=== PATIENT | female | born 1985 | race Caucasian/White ===

== ENCOUNTER 2017-01-02 09:20 | Outpatient (CLI) | payer BC, OTHER | END 2017-01-02 09:21 | disposition home or self-care (01) | LOC: LAB.WCP 09:20 | PROVIDERS: ATTEND Physician Assistant Medical | DX: J03.90 Acute tonsillitis, unspecified (principal) | CPT/HCPCS: 87070 ==

== ENCOUNTER 2017-04-03 15:21 | Outpatient (CLI) | payer BC, OTHER ==
[2017-04-03 15:51] LABS: BASOPHILS # (AUTO) 0.1 10^3/uL (0.0-0.1); BASOPHILS % (AUTO) 0.5 %; EOSINOPHILS % (AUTO) 0.3 %; HCT - HEMATOCRIT 39.6 % (37.0-47.0); HGB - HEMOGLOBIN 13.6 g/dL (12.0-16.0); LYMPHOCYTES # (AUTO) 1.9 10^3/uL (1.5-3.5); LYMPHOCYTES % (AUTO) 18.9 %; MEAN CORPUSCULAR HEMOGLOBIN 28.9 pg (27.0-31.0); MEAN CORPUSCULAR HGB CONC 34.3 g/dL (32.0-36.0); MEAN CORPUSCULAR VOLUME 84.3 fL (81.0-99.0); MONOCYTES # (AUTO) 0.6 10^3/uL (0.0-1.0); MONOCYTES % (AUTO) 6.2 %; NEUTROPHILS # (AUTO) 7.5 10^3/uL (1.5-6.6); NEUTROPHILS % (AUTO) 74.1 %; RED CELL DISTRIBUTION WIDTH 13.5 % (12.0-15.0); UNCORRECTED WHITE BLOOD COUNT 10.1 x10^3/uL; WHITE BLOOD COUNT 10.1 x10^3/uL (4.8-10.8)
[2017-04-03 15:58] LABS: BILIRUBIN,URINE NEGATIVE (NEGATIVE); PH,URINE 6.5 PH (5.0-7.5)
[2017-04-03 16:06] LABS: WBC,URINE 0-3 /HPF (0-5)
[2017-04-05 18:31] LABS: TEST RESULT REPORT
== END 2017-04-03 15:22 | disposition home or self-care (01) ==
LOC: LAB 15:21
PROVIDERS: ATTEND Registered Nurse
DX: Z36.9 Encounter for antenatal screening, unspecified (principal)
CPT/HCPCS: 36415; 81001; 81599; 85025; 86762; 86850; 86900; 86901; 87340; 87389

== ENCOUNTER 2017-06-04 12:29 | Outpatient (CLI) | payer BC, OTHER ==
--- NOTE | 2017-06-06 10:41 | Ultrasound Report ---
DATE OF SERVICE: 06/04/2017 ANATOMIC SCREEN: 06/04/2017 COMPARISON: No comparisons. INDICATION: Anatomic screen. TECHNIQUE: Sonographic evaluation of single intrauterine . FINDINGS: Single intrauterine . heart rate 146 beats per minute. Presentation: Vertex. Placental position: Posterior fundal. No evidence of placenta previa. Three-vessel umbilical cord noted. Amniotic fluid subjectively normal, MVP 6.3 cm. BIOMETRY: BPD 5.3 cm corresponds to 22 weeks 2 days. Head circumference 19.7 cm corresponds to 21 weeks 6 days. Abdominal circumference 16.9 cm corresponds to 21 weeks 6 days. Femur length 3.5 cm corresponds to 21 weeks 1 day. Estimated weight 437 grams. Previously established EGA 21 weeks 3 days with MONICA 10/12/2017. EGA of the current ultrasound 21 weeks 6 days with MONICA 10/09/2017. The following structures were visualized: Choroid plexus, lateral ventricles, midline falx cerebri, cavum septum pellucidum, cisterna magna, cerebellum, nuchal fold, facial profile - nasal bone, nose, lips, hands and feet, cardiac situs, 4 chamber heart, left and right ventricular outflow tracts, stomach and situs, diaphragm, transverse kidneys, bladder, cord insertion, transverse and sagittal spine, upper and lower extremities. Cervix long and closed and measures 3.2 cm. Maternal adnexa grossly unremarkable. No free fluid. IMPRESSION: Single intrauterine . Appropriate-appearing growth. Estimated gestational age via current ultrasound 21 weeks 6 days with MONICA 2017. No evidence of anomalies on this examination. TD: 06/04/2017 22:34 [facility]
== END 2017-06-04 12:30 | disposition home or self-care (01) ==
LOC: DI 12:29
PROVIDERS: ATTEND Registered Nurse
DX: Z34.82 Encounter for supervision of other normal pregnancy, second trimester (principal)
CPT/HCPCS: 76811

== ENCOUNTER 2017-07-19 10:45 | Outpatient (CLI) | payer BC, OTHER ==
[2017-07-19 11:59] LABS: HGB - HEMOGLOBIN 12.8 g/dL (12.0-16.0); MEAN CORPUSCULAR HEMOGLOBIN 29.4 pg (27.0-31.0); MEAN CORPUSCULAR HGB CONC 34.2 g/dL (32.0-36.0); MEAN CORPUSCULAR VOLUME 86.1 fL (81.0-99.0); MEAN PLATELET VOLUME 9.5 fL (7.9-10.8); RED BLOOD COUNT 4.36 10^6/uL (4.20-5.40); RED CELL DISTRIBUTION WIDTH 13.2 % (12.0-15.0); WHITE BLOOD COUNT 10.9 x10^3/uL (4.8-10.8)
== END 2017-07-19 10:46 | disposition home or self-care (01) ==
LOC: LAB 10:45
PROVIDERS: ATTEND Registered Nurse
DX: Z34.83 Encounter for supervision of other normal pregnancy, third trimester (principal)
CPT/HCPCS: 36415; 82950; 86850

== ENCOUNTER 2017-09-16 08:00 | Outpatient (CLI) | payer BC | END 2017-09-16 23:59 | LOC: LAB.R 08:00 | PROVIDERS: ATTEND Registered Nurse | DX: Z34.83 Encounter for supervision of other normal pregnancy, third trimester (principal) | CPT/HCPCS: 87081 ==

== ENCOUNTER 2017-10-04 12:07 | Inpatient (IN) | payer BC ==
[2017-10-04 12:48] LABS: RUPTURE OF MEMBRANES PLUS POSITIVE (NEGATIVE)
[2017-10-04] MEDS ORDERED: PENICILLIN G POTASSIUM 5,000,000 UNIT in SODIUM CHLORIDE 0.9% MINIBAG 100 ML IV ONE (13:30)
[2017-10-04] MEDS: LACTATED RINGERS 1,000 ML IV SCH (13:35)
[2017-10-04] MEDS ORDERED: LIDOCAINE 1% 50 ML MDV ONE (13:36)
[2017-10-04] MEDS ORDERED: miSOPROStol 200 MCG TABLET ONE (13:36)
[2017-10-04] MEDS ORDERED: TERBUTALINE 1 MG/ML VIAL SUBQ ONE (13:37)
[2017-10-04] MEDS ORDERED: OXYTOCIN 10 UNIT/ML VIAL ONE (13:37)
[2017-10-04] MEDS ORDERED: OXYTOCIN/SODIUM CHLORIDE 500 ML IV ONE (13:37)
[2017-10-04] MEDS ORDERED: MINERAL OIL LIGHT 10 ML MC ONE (13:37)
[2017-10-04 13:38] LABS: BASOPHILS % (AUTO) 0.2 %; EOSINOPHILS % (AUTO) 0.2 %; HGB - HEMOGLOBIN 13.4 g/dL (12.0-16.0); LYMPHOCYTES # (AUTO) 1.4 10^3/uL (1.5-3.5); LYMPHOCYTES % (AUTO) 17.3 %; MEAN CORPUSCULAR HEMOGLOBIN 29.4 pg (27.0-31.0); MEAN CORPUSCULAR HGB CONC 34.5 g/dL (32.0-36.0); MEAN CORPUSCULAR VOLUME 85.2 fL (81.0-99.0); MEAN PLATELET VOLUME 10.4 fL (7.9-10.8); MONOCYTES # (AUTO) 0.5 10^3/uL (0.0-1.0); MONOCYTES % (AUTO) 5.7 %; NEUTROPHILS # (AUTO) 6.4 10^3/uL (1.5-6.6); NEUTROPHILS % (AUTO) 76.6 %; PLT - PLATELET COUNT 151 10^3/uL (130-450); RED BLOOD COUNT 4.55 10^6/uL (4.20-5.40); WHITE BLOOD COUNT 8.3 x10^3/uL (4.8-10.8)
[2017-10-04] MEDS: SODIUM CHLORIDE FLUSH 0.9% 10 ML SYRINGE IVP PRN (14:55)
[2017-10-04 15:03] LABS: PLATELET ESTIMATE, MANUAL NORMAL (130-450,000) (NORMAL); PLATELET MORPHOLOGY NORMAL APPEARANCE (NORMAL); RBC MORPHOLOGY (MULTIPLE) NORMAL APPEARANCE (NORMAL)
[2017-10-04] MEDS: PENICILLIN G POTASSIUM 2,500,000 UNIT in SODIUM CHLORIDE 0.9% 100ML 100 ML IV SCH ×2 (17:11→21:16)
[2017-10-04] MEDS: SODIUM CHLORIDE FLUSH 0.9% 10 ML SYRINGE IVP SCH ×3 (17:12→21:52)
--- NOTE | 2017-10-04 18:40 | HISTORY & PHYSICAL EXAMINATION ---
Admit History - Instructions [place]/Slash: -Left hand click circles element as positive or present. -Right hand click slashes element as negative or not present. - Visit Reason Visit Reason: Membranes rupture (leakage of fluid beginning @ 05) - : 2 Parity: 1 Premature: 0 Ectopic: 0 : 0 Care: positive: [facility] (beginning @ 12 weeks' gestation; 10 total visits) Risk/History: positive: Other (hx VAVAD 2004) Complications This : positive: Other (GBS pos) Smoking Status: Former smoker - Mother's Labs Mother's Blood Type: positive: O Mother's RH: positive: Negative (rhogam given 08/05/2017; no vaginal bleeding) GBS: positive: Group B Strep Positive Rubella Status: positive: Immune (No significant medical history No surgical history [employer] Hx includes LEEP for NIALL II, pt cannot recall when & cannot recall exact procedure, but she reports that she had something dramatic done to her cervix s/p her delivery in 2004 & did not need additional intervention afterward. Pap 2017 WNL, HRHPV negative OB hx 2005 VAVD 7# male, Scooby Social hx: to [place], no DV, works f/t as a brie @ [employer], no tobacco/etoh/ drugs) Meds/Allgy - Allergies Allergies/Adverse Reactions: Allergies Allergy/AdvReac Type Severity Reaction Status Date / Time No Known Drug Allergies Allergy Verified 10/04/17 18:09 Review of Systems - Constitutional Constitutional: reports: Fatigue. denies: Fever, Chills, Weakness - Eyes Eyes: denies: Blurred vision, Spots in vision - Cardiovascular Cariovascular: denies: Irregular heart rate, Palpitations, Chest pain, Edema, Lightheadedness - Respiratory Respiratory: denies: Cough, Wheezing, SOB at rest, SOB with exertion - Gastrointestinal Gastrointestinal: reports: Abdominal pain (with contractions). denies: Constipation, Diarrhea, Change in bowel habits, Nausea, Vomiting - Genitourinary Genitourinary: reports: Frequency, Urgency. denies: Dysuria, Flank pain - Musculoskeletal Musculoskeletal: reports: Back pain (slight, with contractions). denies: Muscle pain - Integumentary Integumentary: denies: Rash, Pruritis, Lesions - Neurological Neurological: denies: General weakness, Focal weakness, Headache - Psychiatric Psychiatric: denies: Depression, Anxiety - All Other Systems All Other Systems: reports: Other (leakage of amniotic fluid since 529; occ uterine contractions, minimally uncomfortable; no vaginal bleeding, +FM) Physical - Abdominal Exam Vital Signs: Temp Pulse Resp BP Pulse Ox 36.9 C 75 16 122/74 99 10/04/17 14:00 10/04/17 14:00 10/04/17 14:00 10/04/17 14:00 10/04/17 14:00 Contraction Frequency (min/apart): 3-4 Contraction Intensity: positive: Mild to moderate Uterine Resting Tone: positive: Soft - Monitoring Heart Rate Baseline: 130 Strip Review: positive: Category I - Presentation Presentation: positive: Vertex - Vaginal Exam Membranes: positive: Membranes ruptured Dilation (in cm): 2 Effacement (%): 80 Station: positive: -1 Cervical Position: positive: Midposition - Speculum Exam Speculum Exam Performed: positive: No Findings: positive: Other (ROM +) - Other Notes Labor Progress Note/Additional Text: S: Lulu complains of cramping discomfort & more intense discomfort w/ contraction activity. Ongoing leakage of amniotic fluid. Does not desire analgesia/anesthesia @ this time. O: AAOx3, NAD [place] female; VSS HEENT grossly normocephalic, atraumatic Lungs b/l CTA t/o Heart RRR nl s1s2, no murmur Abd gravid, NT, lie longitudinal, presentation cephalic, palpable movement , EFW 7-7.5# : no lesion, gross leakage of CAF MS: FROM, no edema, no erythema, no deformity Skin: c/d/i, warm, well-perfused, no lesions Neuro: no focal deficit Psych: pleasantly conversant w/ normal mood & affect EFM: BL 130bpm, +accels, no decels, mod variabiity TOCO: UCs q2-3 min x60-80 seconds, palpably moderate SVE: initially closed & stenotic, w/ manipulation, dilated to 2cm/80/-2, ongoing leakage of CAF A: 32y/o @ 39 weeks by LMP consistent w/ 1st trimester US GBS positive s/p 2 doses PCN for IPAP FHTs cat I Stenotic cervical os SROM 13.5 hours, CAF, afebrile Adequate pain control w/o analgesia/anesthesia Hx operative vaginal delivery P: 1. Reviewed options for management of PROM, pt feels her contraction intensity has increased dramatically, UCs consistently occurring now q2-3 minutes, pt desires expectant management for now to see if she experiences further cervical change now that she is 2cm, aware of risks of expectant management vs. augmentation 2. Reviewed labor physiology & anticipatory guidance 3. Continue PCN per protocol for GBS prophylaxis 4. Reassess cervical status x4 hours, earlier PRN; if no change x4 hours, begin Pitocin infusion & titrate per protocol to adequate labor pattern by tocometry 5. Analgesia/anesthesia PRN per pt request 6. Reviewed plan of care w/ pt, partner & RN @ bedside; all in agreement, without concerns. Plan for Labor - Plan For Labor I expect patient to be DC'd or transferred within 96 hours.: Yes Plan for Labor: 1. Reviewed options for management of PROM, pt feels her contraction intensity has increased dramatically, UCs consistently occurring now q2-3 minutes, pt desires expectant management for now to see if she experiences further cervical change now that she is 2cm, aware of risks of expectant management vs. augmentation 2. Reviewed labor physiology & anticipatory guidance 3. Continue PCN per protocol for GBS prophylaxis 4. Reassess cervical status x4 hours, earlier PRN; if no change x4 hours, begin Pitocin infusion & titrate per protocol to adequate labor pattern by tocometry 5. Analgesia/anesthesia PRN per pt request 6. Reviewed plan of care w/ pt, partner & RN @ bedside; all in agreement, without concerns.
[2017-10-05] MEDS ORDERED: OXYTOCIN/SODIUM CHLORIDE 500 ML IV SCH
[2017-10-05] MEDS: SODIUM CHLORIDE FLUSH 0.9% 10 ML SYRINGE IVP PRN (00:15)
[2017-10-05] MEDS: SODIUM CHLORIDE FLUSH 0.9% 10 ML SYRINGE IVP SCH (00:15)
[2017-10-05] MEDS: PENICILLIN G POTASSIUM 2,500,000 UNIT in SODIUM CHLORIDE 0.9% 100ML 100 ML IV SCH ×4 (01:59→13:25)
[2017-10-05] MEDS: LACTATED RINGERS 1,000 ML IV SCH ×3 (07:19→12:28)
[2017-10-05] MEDS: fentaNYL 100 MCG/2 ML VIAL IVP PRN ×3 (08:25→12:21)
[2017-10-05] MEDS ORDERED: PROMETHAZINE INJ 25 MG in SODIUM CHLORIDE 0.9% 50 ML IV PRN (11:36)
--- NOTE | 2017-10-05 11:46 | PROVIDER PROGRESS NOTE ---
Labor Progress Note - Uterine Monitoring Uterine Monitoring Mode: positive: External toco Contraction Frequency (min/apart): 2-3 Contraction Intensity: positive: Moderate to strong Uterine Resting Tone: positive: Soft - Monitoring Monitor Mode: positive: External ultrasound Heart Rate Baseline: 135 Heart Rate Variability: positive: Moderate (6-25 bmp) Accelerations: positive: Present, 15x15 Decelerations: positive: None Strip Review: positive: Category I - Vaginal Exam Dilation (in cm): 4 Effacement (%): 100 Station: -1 Cervical Position: Midposition - Labor Progress Note Labor Progress Note/Additional Text: S: Lulu is getting increasingly uncomfortable w/ her uterine contractions and is having to focus intently during her contractions to cope. She was able to get some relief w/ hydrotherapy & feels IV fentanyl helps take the edge off some. She is exhausted, having slept only ~2 hours overnight. Her & mother are @ the bedside & are supportive. She has not had any further leakage of fluid since yesterday evening. She reports some moderate bloody show when she has used the restroom. She declines epidural anesthesia @ this point. The fentanyl is causing her some mild nausea & she has had emesis x2. O: AAOx3, NAD [place] female T 36.7, HR 56bpm, RR 16, BP 119/72 EFM: BL 135bpm, +accels, no decels, mod kadeem TOCO: UCs q2-3 min [id number], palpably strong w/ 9mU/min Pitocin infusing SVE: initially 2cm w/ stenotic band of tissue around os, scar tissue manually disrupted & pt shortly thereafter 4cm/100%/-1, AROM forebag for moderate CAF, position FLAVIA, vertex well-applied to cervix, ongoing leakage of CAF A: 32 y/o @ 39w1d by LMP dating consistent w/ first trimester US, Pitocin IOL for PROM SROM for CAF 10/04/2017 @ 0530, for a total ruptured duration of 30.5 hours, afebrile GBS positive s/p 8 doses PCN for IPAP FHTs cat I Slow cervical progress from closed to 4cm, cervical stenosis Adequate contraction pattern by tocometry w/ Pitocin infusion slowly titrated per protocol to maximum infusion rate of 9mU/min Adequate pain control w/ IV analgesia/hydrotherapy w/o desire for anesthesia @ this time P: 1. Reviewed labor physiology & dysfunction of dilation secondary to cervical stenosis 2. Continue Pitocin infusion, titrate per protocol to maintain adequate labor pattern by tocometry 3. Continue GBS prophylaxis w/ IV PCN per protocol 4. Promethazine 25mg IVP q 6 hrs PRN nausea/vomiting 5. Analgesia/anesthesia PRN per pt request 6. Reassess cervical status x2-4 hours, earlier PRN; if no cervical change, will insert IUPC & titrate Pitocin to adequacy per MVU 7. Reviewed optimal maternal positioning to facilitate descent 8. Reviewed plan of care w/ pt, partner, pt's mother & RN @ bedside; Dr. Troy, , updated as to pt clinical status.
[2017-10-05] MEDS ORDERED: fentaNYL 100 MCG/2 ML VIAL ONE (12:29)
[2017-10-05] MEDS ORDERED: BUPIVACAINE 0.25% PF 30 ML VIAL SUBQ ONE (13:00)
[2017-10-05] MEDS ORDERED: BUPIVACAINE 0.75% MPF 30 ML VIAL ONE (13:06)
[2017-10-05] MEDS ORDERED: fentaNYL 250 MCG/5 ML VIAL ONE (13:07)
[2017-10-05] MEDS ORDERED: ONDANSETRON 4 MG/2 ML VIAL IVP PRN (13:13)
[2017-10-05] MEDS ORDERED: NALOXONE 0.4 MG/ML VIAL IVP PRN (13:13)
[2017-10-05] MEDS ORDERED: LACTATED RINGERS 500 ML IV ONE (13:13)
[2017-10-05] MEDS ORDERED: ePHEDrine 50 MG/ML VIAL IVP PRN (13:13)
[2017-10-05] MEDS ORDERED: fent/BUPIV 2 MCG/0.125% 250 ML EP PRN (13:13)
[2017-10-05] MEDS ORDERED: NALBUPHINE 20 MG/ML AMP IVP PRN (13:13)
--- NOTE | 2017-10-05 13:16 | PROVIDER PROGRESS NOTE ---
Labor Progress Note - Uterine Monitoring Uterine Monitoring Mode: positive: External toco Contraction Frequency (min/apart): 2-3 min x70-90 seconds Contraction Intensity: positive: Moderate to strong Uterine Resting Tone: positive: Soft - Monitoring Monitor Mode: positive: External ultrasound Heart Rate Baseline: 125 Heart Rate Variability: positive: Moderate (6-25 bmp) Accelerations: positive: Present, 15x15 Decelerations: positive: None Strip Review: positive: Category I - Vaginal Exam Dilation (in cm): 5 Effacement (%): 100 Station: 0 Cervical Position: Anterior - Labor Progress Note Labor Progress Note/Additional Text: S: Lulu is comfortable w/ her epidural in place. She is hoping she will be able to nap. Her mother & her are present @ the bedside & are involved & supportive. O: AAOx3, NAD [place] female VS: T: 36.7, HR 72 RR 18 BP 103/59 EFM: BL 125bpm, + accels, no decels, mod kadeem TOCO: UCs q2-3 min x 70-90 seconds, palpably moderate to strong SVE per RN: 5/100/0, ongoing leakage of CAF A: 32 y/o @ 39w1d by LMP consistent w/ 1st trimester US, Pitocin induction of labor for PROM SROM 10/04/2017 @ 0530, for a total ruptured duration of ~32 hours, afebrile GBS positive s/p 8 doses IV PCN for IPAP FHTs cat I Slow cervical change w/ cervical stenosis, now in active labor w/ adequate contraction pattern per tocometry Adequate pain control w/ epidural anesthesia P: 1. Continue to titrate Pitocin infusion per protocol to maintain adequate contraction pattern by tocometry 2. Continue IV PCN per protocol for GBS prophylaxis 3. Reassess cervical status x4 hours, earlier PRN 4. Encouraged maternal rest 5. Zepeda catheter placement--maintain until 2nd stage 6. Reviewed plan of care w/ pt, partner, pt's mother & RN @ bedside; all in agreement, without concerns
--- NOTE | 2017-10-05 14:32 | DELIVERY NOTE ---
Delivery Note - Labor Labor: positive: Induced by oxytocin - Infant Delivery Method Delivery Method: positive: Spontaneous vaginal delivery - Presentation Presentation: positive: Vertex, Compound (left hand), BILL - left occiput anterior - Nuchal Cord Nuchal Cord: positive: None - Anesthetic Anesthetic Type: - Amniotic Fluid Description Amniotic Fluid Description: positive: Clear - Episiotomy Type Episiotomy Type: positive: None - Laceration Laceration: positive: None - Delivery Outcome Delivery Outcome: positive: Livebirth - [place]: positive: Placed in direct skin contact with mother, Stimulated, Warmed , [place] used, Warmer used sex: positive: Male - Cord Cord: positive: 3 vessels - Placenta Placenta: positive: Intact, Spontaneous - Estimated Blood Loss Estimated Blood Loss (in cc): 350 - Post Delivery Events Post Delivery Events: positive: No post delivery events - Delivery Comments (Free Text/Narrative) Delivery Comments (Free Text/Narrative): Lulu Chaudhary is a 32 y/o [id number] who presented w/ SROM for CAF 10/04/2017; SROM @ 0530, presented for care @ 1230. ROM + positive w/o gross leak @ that point. Lulu was sagar spontaneously & requested to delay Pitocin infusion to await spontaneous onset of labor. She was hoping for a minimally interventive delivery & understood risks/benefits. She was GBS positive & began immediately upon identification of ROM status to receive IV PCN per protocol for prophylaxis. She received a total of 8 doses of IV PCN for IPAP. She did not progress & her cervical stenosis from a prior excisional procedure made her cervical dilation challenging. Scar tissue was manually disrupted & she progressed to 2cm. She did not make further cervical change & Pitocin induction of labor was initiated @ 18 hours post-ROM. She received Pitocin infusion to a maximum infusion rate of 9mU/min & did not make further cervical change until she underwent further manual disruption of cervical scar tissue & AROM of a forebag for CAF. She was 4cm dilated 10/05/2017 @ 1130 & entered active labor @ 1230. She requested & received 3 doses of IV fentanyl 100mcg for discomfort, the last 10/05/2017 @ 1222. She requested & received epidural anesthesia for uncontrolled discomfort, with placement & bolus complete @ 1256. FHTs were monitored electronically t/o & were consistently category I. She was found to be complete w/ a spontaneous urge to push @ 1343, for a total first stage duration of 2 hours, 13 minutes. She began pushing w/ spontaneous urge @1354 &delivered a viable male vaginally in BILL position w/ a compound L hand over an intact perineum @ 1404, for a total 2nd stage duration of 21 minutes w/ active pushing x10 minutes. initially stunned w/o respiratory infant, placed to maternal abdomen for drying/stim w/ minimal response to stimulation, poor tone & no respiratory effort. Cord therefore clamped x2 & cute, to warmer for resuscitative efforts/CPAP. Apgars 4/6/ 9; improved w/ CPAP and stimulation only. Total ruptured duration 32.5 hours, afebrile t/o. Active management of the third stage w/ Pitocin in IV fluids immediately following delivery of shoulders; placenta delivered spontaneously, [place], @ 1406 with a large amount of posterior adherent clot, for a total 3rd stage duration of 2 minutes. FF @ U. Vagina & perineum inspected & found to be intact. EBL 350mL. Mother & infant stable w/ VS stable, spontaneous respiratory effort & infant actively nursing by 20 minutes s/p delivery. Mother initially desired tubal sterilization, has changed her mind. Plans to breastfeed baby Murtaza, whose weight is pending.
[2017-10-05] MEDS ORDERED: WITCH HAZEL/GLYCERIN 1 EACH MED..PAD TOP PRN (14:43)
[2017-10-05] MEDS ORDERED: HYDROCORTISONE 1% CREAM 28 GM TUBE PR PRN (14:43)
[2017-10-05] MEDS ORDERED: OXYTOCIN/SODIUM CHLORIDE 250 ML IV ONE (14:43)
[2017-10-05] MEDS ORDERED: HYDROCORTISONE/PRAMOXINE 10 GM PR PRN (14:43)
[2017-10-05] MEDS ORDERED: MAGNESIUM HYDROXIDE 2,400 MG/30 ML UDC PO PRN (14:43)
[2017-10-05] MEDS ORDERED: RHO(D) IMMUNE GLOBULIN 300 MCG SYRINGE IM ONE (14:43)
[2017-10-05] MEDS: ACETAMINOPHEN 500 MG TABLET PO SCH (16:55)
[2017-10-05] MEDS: DOCUSATE SODIUM 100 MG CAPSULE PO SCH (20:48)
[2017-10-05] MEDS: CELECOXIB 100 MG CAPSULE PO SCH (20:48)
[2017-10-06] MEDS: ACETAMINOPHEN 500 MG TABLET PO SCH ×3 (01:49→16:56)
[2017-10-06] MEDS: CELECOXIB 100 MG CAPSULE PO SCH ×2 (08:23→20:10)
[2017-10-06] MEDS: DOCUSATE SODIUM 100 MG CAPSULE PO SCH ×2 (08:23→20:10)
--- NOTE | 2017-10-06 15:39 | PROVIDER PROGRESS NOTE ---
Subjective - Prog Note Date Prog Note Date: 10/06/17 Prog Note Time: 15:30 - Subjective Pt reports feeling: Improved Subjective: Onel is doing well. She is ambulating & voiding w/o difficulty. She is passing flatus & tolerating a regular diet. She has minimal discomfort & is not requiring analgesia/anesthesia. She reports minimal lochia rubra. She is attempting to breastfeed but her baby has not sustained a successful latch; she has been ensuring that she pumps regularly & is expressing 4-5mL of colostrum at each pumping episode; she is syringe-feeding the @ the breast. Objective - Vital Signs/Intake & Output Reviewed Vital Signs: Yes Vital Signs: Vital Signs x48h Temp Pulse Resp BP Pulse Ox 10/06/17 10:30 66 18 112/59 L 100 10/06/17 08:30 37.0 C 58 L 16 125/73 100 Intake & Output: Intake & Output 10/03/17 10/04/17 10/05/17 10/06/17 23:59 23:59 23:59 23:59 Intake Total 837.5 1212.625 Output Total 555 Balance 837.5 657.625 - Objective General Appearance: positive: No acute distress, Alert Eyes Bilateral: positive: Normal inspection Respiratory: positive: Chest non-tender, No respiratory distress, Breath sounds nml Cardiovascular: positive: Regular rate & rhythm, No murmur, No gallop Abdomen: positive: Non-tender, No distention, Other (FF U-1) Back: positive: Nml inspection Skin: positive: Color nml, No rash, Warm, Dry Extremities: positive: Non-tender, Full ROM, Nml appearance, No pedal edema. negative: Calf tenderness Neurologic/Psychiatric: positive: Oriented x3, CN's nml (2-12), Motor nml, Sensation nml, Mood/affect nml Comments/Other: Nipples b/l intact & everted; colostrum readily expressible; needs larger flange 27mm instead of 24mm for pumping, reviewed; attempted assistance w/ latch , infant unwilling to latch @ this time, intermittent sucking efforts, observed direct, sustained sucking on pacifier, reviewed. Perineum intact w/ minimal lochia rubra, no erythema/edema/ecchymosis - Lab Results Fish Bones: 10/04/17 13:20 Other Labs: Lab Results x24hrs 10/05/17 Range/Units 19:30 Blood Type O NEGATIVE Weak D (Du) WEAK-D NEGATIVE Maternal Bleed NEGATIVE (NEGATIVE) ABX Reporting Has patient been on IV antibiotics over the past 48 hours?: Yes Assessment/Plan - Problem List (1) (normal spontaneous vaginal delivery) Impression: 32 y/o s/p w/o laceration 10/05/2017; PPD #1 Normal uterine involution Adequate pain control w/o analgesia Minimal lochia rubra PROM for >24 hours prior to delivery, s/p 8 doses IV PCN w/ challenges secondary to latch P: 1. Continue routine pp care 2. support provided & to continue in ongoing fashion 3. Use 27mm flange for pumping only; reviewed breast care, nipple care 4. Literature provided re: latch 5. Anticipate d/c home PPD#2
[2017-10-07] MEDS: ACETAMINOPHEN 500 MG TABLET PO SCH (02:09)
[2017-10-07] MEDS: CELECOXIB 100 MG CAPSULE PO SCH (08:11)
[2017-10-07] MEDS: DOCUSATE SODIUM 100 MG CAPSULE PO SCH (08:12)
--- NOTE | 2017-10-07 08:38 | Discharge Plan ---
Discharge Plan Disposition: 01 Home, Self Care Condition: Good Diet: Regular Activity Restrictions: No Restrictions Shower Restrictions: No Driving Restrictions: No Weight Bearing: Full Weight No Smoking: If you smoke, Please STOP! Call for help. Follow-up with: Gabi Weber CNM, ARNP [Provider Admit Priv/Credential] -
--- NOTE | 2017-10-07 08:43 | PROVIDER PROGRESS NOTE ---
Subjective - Subjective Subjective: PPD #2 S: Bonding well with baby. without difficulty. Baby latched at 1500 yesterday and has been doing well at the breast. Pain well controlled with ibuprofen. Bleeding decreased and is light. Mom supportive at the bedside. O: Heart RRR w/o M/G/R, lungs CTAB, abdomen soft and nontender with fundus firm at U-1. Bilateral LE's no edema. Perineum intact. Light lochia rubra. A: 32yo -->P2 PPD#2 s/p TSVD of viable male P: Discharge home today on PPD #2. self care and warning signs reviewed. Plans to take ibuprofen 600mg q 6 hrs PRN at home. She plans to follow up with myself at [facility] in 1 week for support, 3 weeks for visit, and 8 weeks for annual well woman exam. She desires Mirena IUD for contraception. She verbalized understanding and agrees to above plan. She denies further questions or concerns today. Objective - Vital Signs/Intake & Output Vital Signs: Vital Signs x48h Temp Pulse Resp BP Pulse Ox 10/07/17 04:18 37.0 C 62 16 138/62 H 99 Intake & Output: Intake & Output 10/04/17 10/05/17 10/06/17 10/07/17 23:59 23:59 23:59 23:59 Intake Total 837.5 1212.625 Output Total 555 Balance 837.5 657.625 - Lab Results Fish Bones: 10/04/17 13:20
[2017-10-07 10:48] VITALS: BP 124/69
--- NOTE | 2017-10-07 11:47 | Labor Flowsheet ---
Labor Flowsheet Datetime Report Generated by CPN: 10/07/2017 11:47 Datetime: 10/07/2017 07:55 VITAL SIGNS NBP Sys/Michelle/Mean (mmHg): 124 : 69 : 82 Pulse: 57 LaborFlag: Labor Datetime: 10/06/2017 20:09 SpO2 (%): 100 Datetime: 10/05/2017 13:42 VAGINAL EXAM Dilatation (cm): 10.0 Effacement (%): 100 Station: 1 Exam by: T Bandar RNC Datetime: 10/05/2017 13:26 Antibiotics: Penicillin IV (Units) @ 2.5 million units Datetime: 10/05/2017 13:19 Vaginal Exam Comments: Zepeda placed I/O Interventions: Zepeda Cath Inserted COMMUNICATION Communication: RN at Bedside; Provider at Bedside Provider Notified (Name): Morghan Milagrosa Datetime: 10/05/2017 13:11 Epidural Procedure Other: Pump Started Datetime: 10/05/2017 12:55 Epidural Procedure: Loading Dose Datetime: 10/05/2017 12:51 PROCEDURE TIME OUT Procedure Verify: Correct Patient Identity; Accurate Procedure Consent Form; Agreement on Procedure to be Done; Correct Patient Position; Safety Precautions Based on Patient History or Medication Use ANESTHESIA Anesthesia Plans: Epidural Epidural Positioning: Sitting Datetime: 10/05/2017 12:38 Temperature (C): 36.5 Datetime: 10/05/2017 12:30 Stage of : Labor UTERINE ACTIVITY Monitor Mode: External Frequency (min): 2-3 Quality: Moderate Duration (sec): 30-50 Pattern: Normal: <= 5 Contractions in 10 Minutes Resting Tone (Palpate): Relaxed ASSESSMENT A Monitor Mode: External US FHR Baseline Rate : 130 FHR Baseline Changes: No Baseline Change Variability: Moderate 6-25 bpm Accelerations: 15X15 Decelerations: None Category: Category I Analgesics/Sedatives: Fentanyl (mcg) @ 100 Datetime: 10/05/2017 12:26 PATIENT CARE IV/Blood Work: IV Bolus Started Datetime: 10/05/2017 12:21 Communication Comments: morghan milagrosa cnm Datetime: 10/05/2017 12:01 Oxygen Method: Nasal Cannula Datetime: 10/05/2017 11:43 Resting Tone IUP (mmHg): soft Datetime: 10/05/2017 11:31 Comments: Variable decel during vaginal exam. Datetime: 10/05/2017 11:30 Patient Position/Activity: High Fowlers Hygiene: Underpad Changed; Peripad Changed Datetime: 10/05/2017 11:27 Respirations: 20 Datetime: 10/05/2017 11:21 Vaginal Bleeding: Normal Show Cervix, Consistency: Soft Cervix, Position: Midposition Datetime: 10/05/2017 11:00 MEDICATIONS Pitocin (milliunits): Increased to @ 9 Datetime: 10/05/2017 10:45 Patient Care Comments: 150 mls of urine Datetime: 10/05/2017 09:01 PAIN Pain Scale: 1 Pain Presence: Intermittent Pain Type: Cramping Pain Location: Abdomen Datetime: 10/05/2017 08:45 Contraction Comments: mod to palpation Datetime: 10/05/2017 08:30 Monitor Interventions for UA: [place] Adjusted Datetime: 10/05/2017 08:15 Membrane Status: Ruptured Datetime: 10/05/2017 08:01 Membranes Rupture Method: Spontaneous Amniotic Fluid Color: Clear Amniotic Fluid Amount: None Amniotic Fluid Odor: Normal Datetime: 10/05/2017 07:44 Monitor Interventions for FHR: Ultrasound Adjusted Pain Relief Measures: Comfort Measures Pain Coping: Talking Through Contractions Pain Assessment Comments: With some of her contractions. The jacuzzi helped a lot . MATERNAL ASSESSMENT Level of Consciousness: Fully Conscious DTR's/Clonus: DTRs 2+; No Clonus Headache: Denies Breath Sounds, Left: Clear and Equal Breath Sounds, Right: Clear and Equal Nausea/Vomiting: Denies RUQ Epigastric Pain: Denies Comfort Measures: Breathing/Relaxation; Hot Shower/Tub/Spa; Family Support Datetime: 10/05/2017 07:01 Pitocin Checklist: At Least 1 Acceleration of 15 bpm x 15 Seconds in 30 Minutes or Adequate Variabi lity; No More than 5 Uterine Contractions in 10 Minutes for any 20 Minute Interval; Uterus Palpates S oft between Contractions Datetime: 10/05/2017 02:15 Temperature Route: Oral Datetime: 10/05/2017 00:16 TEACHING Instructional Method: Verbal Plan of Care: Plan of Care Discussed; Labor Labor/Induction: Augmentation Medications: Pitocin Datetime: 10/04/2017 23:49 Notification Reason: Labor Status Datetime: 10/04/2017 21:34 Anesthesia Comments: Randall [employer] ACTOR here going over paperwork in case pt decides that she would like an epidural later on in her labor process Datetime: 10/04/2017 18:31 Strip Reviewed by: M Milagrosa Datetime: 10/04/2017 17:47 Medication Comments: PCN finished Datetime: 10/04/2017 14:39 Pain Goal: 5 Datetime: 10/04/2017 14:10 Membrane Comments: ROM Plus postive, no fluid noted since admit Datetime: 10/04/2017 14:07 Membranes Ruptured Date/Time: 10/04/2017 05:30 Datetime: 10/04/2017 13:20 ROM Test Kit: Positive
--- NOTE | 2017-10-08 19:04 | DISCHARGE SUMMARY ---
Physician: NOY Hector DATE OF ADMISSION: 10/04/2017 DATE OF DISCHARGE: 10/07/2017 DIAGNOSES ON ADMISSION 1. A 32-year-old G2, P1-0-0-1 at 39 weeks' gestation. 2. Premature rupture of membranes. 3. GBS positive. DIAGNOSES ON DISCHARGE 1. A 32-year-old G2, P2-0-0-2, status post spontaneous vaginal delivery on 10/2017. 2. Normal recovery. BRIEF HISTORY: She is a patient of [facility] who presented on 10/04/2017 with complaints of rupture of membranes. The patient was found to be 2 cm dilated, 80% effaced at a -1 station in a mid position. She was found to contract every 3-4 minutes. Penicillin was initiated per protocol for GBS prophylaxis. She was augmented with Pitocin and spontaneously delivered a viable male infant on 10/05/2017. Apgars were 4, 6, and 9 at one, five, and ten minutes respectively. EBL was 350 mL. The perineum, vagina, and cervix were inspected and found to be intact. She has been doing well in her course. She is ambulating and tolerating a regular diet. She is urinating without difficulty, and her lochia is normal. Her pain is well controlled with oral medications. She will be discharged home today on day #2. She intends to follow up with myself at [facility] in 1 week for routine visit and again in 3 weeks for routine visit. She has been given precautions to call if she has any worsening fevers, chills, abdominal pain, increased bleeding, or foul smelling vaginal lochia. TD: 10/08/2017 19:03 BILLY
== END 2017-10-07 10:40 | disposition home or self-care (01) | DRG 775 ==
LOC: WFO 12:07 → FBP 12:09 → WFO 12:51 → FBP 12:52
PROVIDERS: ADMIT Registered Nurse; ATTEND Nurse Practitioner Obstetrics & Gynecology
PROC: 10E0XZZ Delivery of Products of Conception, External Approach (ICD-10-PCS; principal; 2017-10-04)
PROC: 10907ZC Drainage of Amniotic Fluid, Therapeutic from Products of Conception, Via Natural or Artificial Opening (ICD-10-PCS; 2017-10-04)
DX: O99.824 Streptococcus B carrier state complicating childbirth (principal); O34.43 Maternal care for other abnormalities of cervix, third trimester; N88.2 Stricture and stenosis of cervix uteri; O42.02 Full-term premature rupture of membranes, onset of labor within 24 hours of rupture; O32.6XX0 Maternal care for compound presentation, not applicable or unspecified; O26.893 Other specified pregnancy related conditions, third trimester; Z3A.39 39 weeks gestation of pregnancy; Z37.0 Single live birth; Z67.91 Unspecified blood type, Rh negative; Z87.891 Personal history of nicotine dependence; Z87.410 Personal history of cervical dysplasia
CPT/HCPCS: 36415; 83033; 84112; 85025; 86900; 86901; 88307; 99213

== ENCOUNTER 2022-06-19 17:46 | Emergency (ER) | payer OTHER ==
--- NOTE | 2022-06-19 20:37 | ED Physician Documentation ---
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 She had sudden onset pain that improved but then recurred later in the day. Denies vision changes but does express pain as well as some tearing. No contact lens use at baseline. No other injury. Review of Systems Eyes: reports: Discharge, Irritation PD PAST MEDICAL HISTORY - Past Medical History Past Medical History: No Cardiovascular: None Respiratory: None Neuro: None Endocrine/Autoimmune: None GI: None SAFETY LEADER: None : None HEENT: None Psych: None Musculoskeletal: None Derm: None - Past Surgical History Past Surgical History: No - Present Medications Home Medications: Ambulatory Orders Medication Instructions Recorded Confirmed Ofloxacin 0.3% Ophth Drops 2 drops RIGHTEYE Q4H 10 Days #5 ml 06/19/22 [Ocuflox 0.3% Ophth Drops] - Allergies Allergies/Adverse Reactions: Allergies Allergy/AdvReac Type Severity Reaction Status Date / Time No Known Drug Allergies Allergy Verified 06/19/22 17:50 - Social History Does the pt smoke?: No Smoking Status: Never smoker Does the pt drink ETOH?: Yes Does the pt have substance abuse?: No - Immunizations Immunizations are current?: Yes - POLST Patient has POLST: No PD ED PE NORMAL - Vitals Vital signs reviewed: Yes - General General: Alert and oriented X 3, No acute distress, Well developed/nourished - HEENT HEENT: Atraumatic, PERRL, EOMI, Other (Fluorescein exam with 1mm vertical corneal abrasion to the central part of the R eye. no foreign body on eversion of upper/lower lid) Results - Vitals Vitals: Vital Signs - 24 hr 06/19/22 06/19/22 17:48 19:35 Temperature 36.3 C L 36.9 C Heart Rate 70 79 Respiratory 16 15 Rate Blood Pressure 144/78 H 118/72 O2 Saturation 98 100 Oxygen O2 Source Room air PD Medical Decision Making - ED course ED course: 37-year-old woman presents with right eye injury, found to have corneal abrasion on fluorescein exam. Antibiotic eyedrops prescribed. Pain well controlled with proparacaine eyedrops. Plan to follow-up with primary care provider. Return precautions given. Departure - Departure Disposition: 01 Home, Self Care Clinical Impression: Corneal abrasion Condition: Good Instructions: Corneal Injury Prescriptions: Ofloxacin 0.3% Ophth Drops [Ocuflox 0.3% Ophth Drops] 2 drops RIGHTEYE Q4H 10 Days #5 ml Comments: You were seen in the emergency department for evaluation (corneal abrasion). Please take your antibiotic eyedrops as prescribed and return to the emergency department if you have any new or worsening symptoms or other concerns. Follow- up with your primary care provider. Electronic prescription was sent to [facility] in [place].
[2022-06-19 20:47] VITALS: BP 114/74
== END 2022-06-19 20:46 | disposition home or self-care (01) ==
LOC: ED 17:46
DX: S05.01XA Injury of conjunctiva and corneal abrasion without foreign body, right eye, initial encounter (principal); W22.8XXA Striking against or struck by other objects, initial encounter; Y99.0 Civilian activity done for income or pay
CPT/HCPCS: 1040M; 99282; 99283

== ENCOUNTER 2023-12-23 08:00 | Outpatient (CLI) | payer OTHER ==
[2023-12-23 12:57] LABS: BILIRUBIN,URINE NEGATIVE (NEGATIVE); GLUCOSE, URINE (UA) NEGATIVE (NEGATIVE); KETONES,URINE (UA) NEGATIVE (NEGATIVE); LEUKOCYTE ESTERASE, URINE SMALL (NEGATIVE); NITRITE,URINE NEGATIVE (NEGATIVE); OCCULT BLOOD,URINE MODERATE (NEGATIVE); PROTEIN,URINE NEGATIVE (NEGATIVE); UROBILINOGEN,URINE 0.2 (NORMAL) E.U./dL (NORMAL)
[2023-12-23 13:07] LABS: CLARITY,URINE HAZY (CLEAR)
[2023-12-23 13:08] LABS: BACTERIA,URINE Moderate /HPF (None Seen); RBC,URINE 0-5 /HPF (0-5); SQUAMOUS EPITHELIAL CELL,UR MANY Squamous (<= Few)
== END 2023-12-23 23:59 | disposition home or self-care (01) ==
LOC: LAB.N 08:00
PROVIDERS: ATTEND Nurse Practitioner
DX: R10.31 Right lower quadrant pain (principal)
CPT/HCPCS: 81001; 87086

== ENCOUNTER 2024-01-02 06:57 | Outpatient (CLI) | payer OTHER ==
--- NOTE | 2024-01-02 13:11 | Ultrasound Report ---
PROCEDURE: Pelvic w/Transvaginal INDICATIONS: RLQ ABD PAIN TECHNIQUE: Real-time scanning was performed of the pelvic organs, with image documentation. Additional endovagi nal scanning was necessary due to incomplete visualization of the adnexal and endometrial structures by transabdominal scanning. COMPARISON: None. FINDINGS: Uterus: Uterus is anteverted and normal in size at 8.6 x 4.1 x 5.1 cm. The myometrium is homogeneou s. The endometrium measures 4 mm in combined thickness. IUD within the central uterus. Ovaries: The right ovary measures 2.6 x 1.8 x 2.5 cm, with a calculated ovarian volume of 6 cc. The left ovary measures 3.6 x 2.5 x 2.4 cm, with a calculated ovarian volume of 11 cc. The ovaries have a normal sonographic appearance. Less than 12 follicles can be seen in each ovary. No adnexal mass es are seen. No cystic lesions measuring greater than 3 cm. Dominant left ovarian follicle. Other: No pathologic free abdominal or pelvic fluid. IMPRESSION: IUD appropriately positioned within the endometrial canal. Normal pelvic ultrasound. Reviewed by: Bernardino Jenkins MD on 01/02/2024 1:09 PM PDT Approved by: Bernardino Jenkins MD on 01/02/2024 1:09 PM PDT Station ID: [id number]
--- NOTE | 2024-01-02 13:12 | Ultrasound Report ---
PROCEDURE: Abdomen Complete INDICATIONS: RLQ ABD PAIN TECHNIQUE: Real-time scanning was performed of the abdominal and retroperitoneal organs, with image documentatio n. COMPARISON: None. FINDINGS: Liver: Increased liver echogenicity, commonly mild hepatic steatosis. Gallbladder: No gallstones, sludge, wall thickening or pericholecystic edema. Biliary ducts: Intrahepatic bile ducts are non-dilated. Extrahepatic bile duct caliber measures 5 m m. Normal is 6-7 mm or less in diameter, or 10 mm or less post-cholecystectomy. Pancreas: Visualized portions of the pancreas are sonographically normal. Spleen: Spleen is normal in size and homogeneous in echotexture. Kidneys: Kidneys are normal in size and echotexture. Right kidney measures 11 cm long; left kidney measures 11.4 cm long. No hydronephrosis or nephrolithiasis. No solid masses. No complex renal cyst ic lesions which require follow-up. Aorta: Visualized aorta is normal in caliber at less than 3 cm. Iliacs: Proximal common iliac arteries are normal in caliber at less than 2.5 cm. IVC: Intrahepatic inferior vena cava is patent. Miscellaneous: No free abdominal fluid. IMPRESSION: Increased liver echogenicity, commonly caused by mild hepatic steatosis. Otherwise, unremarkable abdo shantel ultrasound. Reviewed by: Bernardino Jenkins MD on 01/02/2024 1:10 PM PDT Approved by: Bernardino Jenkins MD on 01/02/2024 1:10 PM PDT Station ID: [id number]
== END 2024-01-02 06:58 | disposition home or self-care (01) ==
LOC: DI 06:57
PROVIDERS: ATTEND Nurse Practitioner
DX: R10.31 Right lower quadrant pain (principal); Z97.5 Presence of (intrauterine) contraceptive device